=== PATIENT | male | born 1955 | race Caucasian/White ===

== ENCOUNTER 2016-03-13 12:40 | Emergency (ER) | payer OTHER ==
[~2016-03-13] VITALS: Ht 172.7 cm; Wt 74.0 kg
[~2016-03-13 12:40] MED LIST: DICL25 PO; ZITH250T PO
[2016-03-13 12:50] VITALS: BP 145/78; PULSE 76; RESP 20; TEMP 97.9; O2SAT 100
[2016-03-13] MEDS ORDERED: PRIL20CA9 PO (12:57)
[2016-03-13] MEDS ORDERED: DICL25 PO (12:57)
[2016-03-13] MEDS ORDERED: PERC5TAB12 PO (14:00)
[2016-03-13] MEDS ORDERED: DIAZ5 PO (14:00)
--- NOTE | 2016-03-13 14:01 | PD ---
HPI Chief Complaint: Musculoskeletal Complaint Time Seen by Provider: 13:38 Travel History International Travel<30 days: No Contact w/Intl Traveler<30days: No Traveled to known affect area: No History of Present Illness HPI 61 year-old woman presents emergent harmful back pain. Symptoms started about a week ago. It gradually worsened. He drove to and from [place] yesterday by coming impacted house he states he was having severe pain trouble getting in the [place] pain and spasms. Describes severe spasms in his back throughout the night. He's had minor trouble with his back in the past. He saw his doctor for back pain in the past. No major surgeries. He takes diclofenac for his back and sciatica as well as for an ankle and knee problem that he has. He took an old Darvocet that he had and it seemed to help some this morning. He otherwise had been feeling generally well and healthy. No other complaints. History Past Medical History Medical History: Denies Significant Hx Influenza Vaccination: Yes Social History Alcohol Use: Yes (rarely) Tobacco Use: No Allergies-Medications (Allergen,Severity, Reaction): Coded Allergies: No Known Allergies (Verified , 03/13/16) Reported Meds & Prescriptions Reported Meds & Active Scripts Active Reported Prilosec (Omeprazole) 20 Mg Cap 20 Mg PO DAILY Diclofenac Sodium DR (Diclofenac Sodium) 25 Mg Tabdr 25 Mg PO BID Review of Systems Except as stated in HPI: all other systems reviewed are Neg Physical Exam Narrative GENERAL: Well-appearing 61-year-old man, appears uncomfortable and nontoxic. SKIN: Warm and dry. CARDIOVASCULAR: Warm and well perfused. RESPIRATORY: Normal rate and effort. MUSCULOSKELETAL: Normal appearance of back and bilateral lower extremities. No ecchymosis, swelling, bruising. No rashes. Normal muscle bulk and tone. NEUROLOGICAL: Strength full 5/5 and equal in bilateral lower extremities in proximal and distal muscle groups. 5/5 in large toe flexion and extension. Sensation is intact to light touch throughout. Reflexes symmetric. No clonus. PSYCHIATRIC: Appropriate mood and affect; insight and judgment normal. Data Data Last Documented VS Vital Signs Date Time Temp Pulse Resp B/P Pulse Ox O2 Delivery O2 Flow Rate FiO2 03/13/16 12:50 97.9 76 20 145/78 100 MDM Medical Decision Making Medical Screen Exam Complete: Yes Emergency Medical Condition: Yes Differential Diagnosis Back pain or spasm, radiculopathy, sciatica, AAA, other Narrative Course Well-appearing 65 year-old man, back spasm starting yesterday. Looks well. Reassuring exam. No red flag symptoms. Patient's pain is clearly positional and nothing to suggest AAA or other significant pathology. Diagnosis Primary Impression: Back spasm Additional Instructions: Continue NSAIDs as previously prescribed. Take Percocet as needed for pain. Take Valium as needed for muscle spasm. Do not take it with the Percocet. Fall with your primary doctor in the next 2-4 days. Med/Other Pt SpecificInfo: Prescription(s) given Scripts Diazepam (Valium)5 Mg Tab5 Mg PO TID PRN (MUSCLE SPASM) #6 TAB Ref 0 Prov:Edis Dos Santos MD 03/13/16 Oxycodone-Acetaminophen (Percocet)5-325 mg Tab1-2 Tab PO Q4H PRN (PAIN) #15 TAB Ref 0 Prov:Edis Dos Santos MD 03/13/16 Disposition: 01 DISCHARGE HOME Condition: Stable Edis Dos Santos MD Mar 13, 2016 14:01
[2016-03-13] MEDS ORDERED: oxyCODONE/ACETAMINOPHEN 5 MG/325 MG TAB PO ONE (14:15)
== END 2016-03-13 14:27 | disposition home or self-care (01) ==
LOC: PHEFT 12:40
DX: M62.830 Muscle spasm of back (principal)
CPT/HCPCS: 99283